=== PATIENT | female | born 1950 | race African-American/Black ===

== ENCOUNTER 2018-05-01 13:32 | Outpatient (CLI) | payer MEDICARE | END 2018-05-01 13:33 | disposition home or self-care (01) | LOC: BICULT 13:32 | PROVIDERS: ATTEND Internal Medicine | DX: N28.9 Disorder of kidney and ureter, unspecified (principal) | CPT/HCPCS: 76770 ==

== ENCOUNTER 2018-06-09 09:54 | Outpatient (CLI) | payer MEDICARE | END 2018-06-09 09:55 | disposition home or self-care (01) | LOC: BICMAMMO 09:54 | PROVIDERS: ATTEND Internal Medicine | DX: Z13.820 Encounter for screening for osteoporosis (principal); Z78.0 Asymptomatic menopausal state | CPT/HCPCS: 77080 ==

== ENCOUNTER 2018-09-22 09:40 | Outpatient (CLI) | payer MEDICARE | END 2018-09-22 09:41 | disposition home or self-care (01) | LOC: BICMAMMO 09:40 | PROVIDERS: ATTEND Internal Medicine | DX: Z12.31 Encounter for screening mammogram for malignant neoplasm of breast (principal); Z80.3 Family history of malignant neoplasm of breast | CPT/HCPCS: 77063; 77067 ==

== ENCOUNTER 2019-09-23 09:31 | Outpatient (CLI) | payer MEDICARE ==
--- NOTE | 2019-09-23 11:02 | MMO ---
Bilateral MAMMO Bilat Screen [facility]. CLINICAL HISTORY: Patient is 69 years old and is seen for screening. The patient has no family history of breast cancer. The patient has no personal history of cancer. VIEWS: The views performed were: bilateral craniocaudal with tomosynthesis; bilateral mediolateral oblique; and bilateral mediolateral oblique with tomosynthesis. FILMS COMPARED: The present examination has been compared to prior imaging studies performed at [facility] on 09/16/2015, 09/17/2016, 09/18/2017 and 09/22/2018. This study has been interpreted with the assistance of computer-aided detection. MAMMOGRAM FINDINGS: There are scattered fibroglandular densities. There are benign appearing and vascular calcifications seen in both breasts. There are no suspicious masses, suspicious calcifications, or new areas of architectural distortion. IMPRESSION: THERE IS NO MAMMOGRAPHIC EVIDENCE OF MALIGNANCY. A ROUTINE FOLLOW-UP MAMMOGRAM IN 1 YEAR IS RECOMMENDED. THE RESULTS OF THIS EXAM WERE SENT TO THE PATIENT. ACR BI-RADS Category 2 - Benign finding MAMMOGRAPHY NOTE: 1. A negative mammogram report should not delay a biopsy if a dominant of clinically suspicious mass is present. 2. Approximately 10% to 15% of breast cancers are not detected by mammography. 3. Adenosis and dense breasts may obscure an underlying neoplasm. Reported by: EBONI RENTERIA MD Electonically Signed: [id number]
== END 2019-09-23 09:32 | disposition home or self-care (01) ==
LOC: BICMAMMO 09:31
PROVIDERS: ATTEND Internal Medicine
DX: Z12.31 Encounter for screening mammogram for malignant neoplasm of breast (principal)
CPT/HCPCS: 77063; 77067

== ENCOUNTER 2020-09-28 09:43 | Outpatient (CLI) | payer MEDICARE ==
--- NOTE | 2020-09-28 10:50 | MMO ---
Bilateral MAMMO Bilat Screen [facility]. CLINICAL HISTORY: Patient is 70 years old and is seen for screening. The patient has the following family history of breast cancer: paternal grandmother, malignant (generic) and paternal aunt, malignant (generic). The patient has no personal history of cancer. VIEWS: The views performed were: bilateral craniocaudal with tomosynthesis and bilateral mediolateral oblique with tomosynthesis. FILMS COMPARED: The present examination has been compared to prior imaging studies performed at [facility] on 09/17/2016, 09/18/2017, 09/22/2018 and 09/23/2019. This study has been interpreted with the assistance of computer-aided detection. MAMMOGRAM FINDINGS: There are scattered fibroglandular densities. Benign calcifications are noted bilaterally. There are no suspicious masses, suspicious calcifications, or new areas of architectural distortion. IMPRESSION: THERE IS NO MAMMOGRAPHIC EVIDENCE OF MALIGNANCY. A ROUTINE FOLLOW-UP MAMMOGRAM IN 1 YEAR IS RECOMMENDED. THE RESULTS OF THIS EXAM WERE SENT TO THE PATIENT. ACR BI-RADS Category 2 - Benign finding MAMMOGRAPHY NOTE: 1. A negative mammogram report should not delay a biopsy if a dominant of clinically suspicious mass is present. 2. Approximately 10% to 15% of breast cancers are not detected by mammography. 3. Adenosis and dense breasts may obscure an underlying neoplasm. Reported by: ARRON PINON MD Electonically Signed: [id number]
--- NOTE | 2020-09-28 11:30 | RAD ---
XR Knee Lt 4 View STANDARD HISTORY: Left knee pain. Arthritis of left knee FINDINGS: No fracture or dislocation is identified. There are severe degenerative changes manifested by osteoph yte formation and joint space narrowing, most prominent in the medial tibiofemoral compartment.
--- NOTE | 2020-09-28 12:27 | BD ---
DEXA SCAN: Date: 09/28/2020 INDICATION: Osteoporosis screening. COMPARISON: Prior exam dated 03/29/2004. FINDINGS: Lumbar Spine: BMD (g/cm2) L1 1.296 T-Score: 2.8 Z-Score: 4.0 L2 1.332 T-Score: 2.8 Z-Score: 4.2 L3 1.270 T-Score: 1.7 Z-Score: 3.2 L4 1.281 T-Score: 2.0 Z-Score: 3.5 L1-L4 1.294 T-Score: 2.2 Z-Score: 3.7 Left Femoral Neck: 0.899 T-Score: 0.5 Z-Score: 1.1 Left Total Hip: 1.103 T-Score: 1.3 Z-Score: 1.6 The bone mineral density has declined 4.9% from baseline dated 03/29/2004. IMPRESSION: Based on WHO criteria, the patient's bone mineral density remains normal. The patient's bone mineral density has declined 4.9% from comparison DEXA scan dated 03/29/2004; however, comparison is difficul t as dissimilar scan types and analysis methods was performed in 2003 versus current exam. POS: GERBER
== END 2020-09-28 09:44 | disposition home or self-care (01) ==
LOC: BICMAMMO 09:43
PROVIDERS: ATTEND Internal Medicine
DX: Z12.31 Encounter for screening mammogram for malignant neoplasm of breast (principal); Z13.820 Encounter for screening for osteoporosis; Z78.0 Asymptomatic menopausal state; Z80.3 Family history of malignant neoplasm of breast
CPT/HCPCS: 77063; 77067; 77080

== ENCOUNTER 2020-11-04 06:48 | Outpatient (CLI) | payer MEDICARE ==
[2020-11-04 13:14] LABS: Bilirubin Neg (Negative); Blood, Urine Negative (Negative); Clarity Clear (Clear); Glucose, Urine (Dipstick) Normal (Negative); Ketone, Urine Negative (Negative); Leukocyte Negative (Negative); Nitrite Negative (Negative); Protein, Urine (Dipstick) Negative (Neg-Trace); Urobilinogen Normal mg/dL (Less than 2)
[2020-11-04 13:16] LABS: #Basophils 0.1 10x3/uL (0.0-0.2); #Eosinphils 0.1 10x3/uL (0.0-0.5); #Monocytes 0.6 10x3/uL (0.0-1.1); #Neutrophils 2.3 10x3/uL (1.5-8.4); %Basophils 0.9 % (0.0-2.0); %Eosinophils 1.6 % (0.0-6.0); %Lymphocytes 46.2 % (18.0-47.0); %Monocytes 10.5 % (0.0-10.0); %Neutrophils 40.6 % (40.0-75.0); Hemoglobin 12.8 g/dL (12.0-16.0); Mean Corpuscular HGB CONC 33.1 G/DL (32.0-36.0); Mean Corpuscular Hemoglobin 28.1 PG (27.0-33.0); Mean Corpuscular Volume 84.9 fl (80.0-100.0); Mean Platelet Volume 10.4 fl (7.4-10.4); Platelet Count 262 10x3/uL (130-400); RBC Distribution Width 13.6 % (11.5-14.5); Red Blood Cell (RBC) Count 4.56 10x6/uL (3.90-5.20); White Blood Cell (WBC) Count 5.7 10x3/uL (4.5-11.0)
[2020-11-04 13:25] LABS: Anion Gap 13 mmol/L (10-20); BUN (Urea Nitrogen) 13 mg/dL (9.8-20.1); Calc. Creatinine Clearance 0 mL/min (70-130); Calcium 9.6 mg/dL (7.8-10.44); Carbon Dioxide 27 mmol/L (23-31); Chloride 108 mmol/L (98-107); Glucose 76 mg/dL (80-115); Sodium 144 mmol/L (136-145)
[2020-11-04 13:36] LABS: PTT 25.4 sec (22.0-33.0); Prothrombin Time 10.9 sec (9.5-12.1)
[2020-11-04 13:50] LABS: Bacteria/HPF None Seen HPF (None Seen); RBC/HPF 0-3 HPF (0-3); Squamous Epithelial 0-3 HPF (0-3); WBC/HPF 0-3 HPF (0-3)
--- NOTE | 2020-11-04 16:18 | EKG ---
Test Reason : PREOP Blood Pressure : / mmHG Vent. Rate : 062 BPM Atrial Rate : 062 BPM P-R Int : 188 ms QRS Dur : 118 ms QT Int : 432 ms P-R-T Axes : 046 -13 073 degrees QTc Int : 438 ms Normal sinus rhythm Left ventricular hypertrophy with QRS widening Abnormal ECG Confirmed by DR. Flaca ZAVALA ([id number]) on 11/04/2020 4:18:17 PM Referred By: MEY Confirmed By:DR. Flaca ZAVALA
[2020-11-04 22:26] LABS: SARS-CoV-2 MS2 Positive; SARS-CoV-2 N Gene Negative; SARS-CoV-2 S Gene Negative; SARS-CoV-2 by NAA Not Detected (NotDetected); SARS-CoV-2 orf1ab Negative
== END 2020-11-04 06:49 | disposition home or self-care (01) ==
LOC: LABBT 06:48
PROVIDERS: ATTEND Orthopaedic Surgery
DX: Z01.818 Encounter for other preprocedural examination (principal); M17.12 Unilateral primary osteoarthritis, left knee; Z20.828 Contact with and (suspected) exposure to other viral communicable diseases
CPT/HCPCS: 80048; 81001; 85025; 85610; 85730; 87081; 87086; 93005; U0003; 87635; 93010

== ENCOUNTER 2020-11-09 05:33 | Day surgery (SDC) | payer MEDICARE ==
[2020-11-08 10:31] VITALS: BMI 31.9
--- NOTE | 2020-11-08 13:10 | HP ---
HISTORY OF PRESENT ILLNESS: The patient is a 70-year-old female with a greater than 10 year history of progressive problems with her left knee without specific injury. She has had progressive pain with walking, which has progressed despite rest, restriction of activities, anti-inflammatory medications, and previous injections. The pain is now interfering with day-to-day activities including walking, getting dressed, and sleeping. PAST MEDICAL HISTORY: The patient has history of hypertension and previous hysterectomy. She has a previous right knee arthroscopy. CURRENT MEDICATIONS: Include, 1. Low-dose aspirin. 2. Fish oil. 3. Claritin. 4. Pravastatin. 5. Loratadine. 6. Tylenol. 7. Losartan. 8. . ALLERGIES: SHE IS ALLERGIC TO HYZAAR, SIMVASTATIN, TELMISARTAN, AND HYDROCHLOROTHIAZIDE. FAMILY HISTORY: Otherwise unremarkable. SOCIAL HISTORY: Otherwise unremarkable. REVIEW OF SYSTEMS: Otherwise unremarkable. PHYSICAL EXAMINATION: GENERAL: Reveals a healthy female. HEENT: Unremarkable. NECK: Supple. CHEST: Clear. HEART: Regular rate and rhythm. ABDOMEN: Soft and nontender. PELVIC: Deferred. RECTAL: Deferred. BREASTS: Deferred. EXTREMITIES: Pertinent findings of the left knee, there is no effusion or erythema. There is moderately severe varus deformity. There is tenderness and crepitus over the medial joint line. There is no instability. Range of motion is 20 to 85 degrees. There is left antalgic gait. There are palpable distal pulses. No pain with range of motion of the left hip. Neurovascular exam is intact. DIAGNOSTIC STUDIES: X-rays of the left knee reveal severe degenerative arthritis with [id number] collapse medially with marked progression from x-ray done 10 years ago. IMPRESSION: 1. Degenerative arthritis, left knee. 2. History of hypertension. PLAN: Left total knee replacement. The nature of the surgery, length of recovery, and potential complications such as infection, loss of motion, incomplete relief, neurovascular injury, possible transfusion, and need for revision have been discussed in detail. Job ID: [id number]
[2020-11-09] MEDS ORDERED: Vancomycin 1.5 GRAM/300 ML BAG ONE (06:03)
[2020-11-09] MEDS ORDERED: Tranexamic Acid 1,000 MG/10 ML VIAL ONE ×2 (06:03→09:20)
[2020-11-09] MEDS ORDERED: Sodium Chloride 0.9% 100 ML ONE (06:03)
[2020-11-09] MEDS ORDERED: Fentanyl 100 MCG/2 ML VIAL ONE ×2 (06:30→08:55)
[2020-11-09] MEDS ORDERED: Midazolam HCl 2 mg/2 ml Vial ONE (06:30)
[2020-11-09] MEDS ORDERED: Lidocaine 1% w/Epinephrine 1:100K 20 ML VIAL ONE (06:41)
[2020-11-09] MEDS ORDERED: Bupivacaine 0.25% HCL 30 ML VIAL ONE (06:41)
[2020-11-09] MEDS ORDERED: Fentanyl 100 MCG/2 ML VIAL IV PRN (07:10)
[2020-11-09] MEDS ORDERED: traMADol HCl 50 MG TAB PO PRN ×2 (07:15)
[2020-11-09] MEDS ORDERED: Zolpidem Tartrate 5 MG TAB PO PRN ×2 (07:15→10:13)
[2020-11-09] MEDS ORDERED: HYDROcodone/Acetaminophen 10/325 mg Tablet PO PRN ×3 (07:15→10:13)
[2020-11-09] MEDS ORDERED: Ondansetron PF 4 MG/2 ML Vial IVP PRN ×2 (07:15→10:13)
[2020-11-09] MEDS ORDERED: Promethazine HCl 25 MG/ML VIAL IM PRN (07:15)
[2020-11-09] MEDS ORDERED: Ropivacaine HCl/PF 250 ML in Premix Bag 1 BAG NERVE BLCK SCH (07:15)
[2020-11-09] MEDS ORDERED: Bupivacaine HCl 0.5%/Epinephrine 1:200,000/PF 30 ml Vial ONE (09:17)
[2020-11-09] MEDS ORDERED: Ropivacaine 0.5% HCl/PF (150 MG/30 ML VIAL) ONE (09:17)
[2020-11-09] MEDS ORDERED: Ondansetron PF 4 MG/2 ML Vial ONE (09:17)
[2020-11-09] MEDS ORDERED: PROPOFOL 200 MG/20 ML VIAL ONE (09:17)
[2020-11-09] MEDS ORDERED: Lidocaine 1% PF 5 ML VIAL ONE (09:17)
[2020-11-09] MEDS ORDERED: Ropivacaine 0.2% HCl/PF (40 MG/20 ML VIAL) ONE (09:17)
[2020-11-09] MEDS ORDERED: Dexamethasone 20 MG/5 ML VIAL ONE (09:17)
[2020-11-09] MEDS ORDERED: Tranexamic Acid 1,000 MG in Sodium Chloride 0.9% 100 ML IVPB SCH ×2 (09:30→10:13)
[2020-11-09] MEDS ORDERED: Fentanyl 100 MCG/2 ML VIAL SLOW IVP PRN ×2 (10:13)
[2020-11-09] MEDS ORDERED: Acetaminophen 325 MG TAB PO PRN (10:13)
[2020-11-09] MEDS ORDERED: Promethazine HCl 25 MG/ML VIAL SLOW IVP PRN (10:13)
[2020-11-09] MEDS ORDERED: diphenhydrAMINE 25 MG CAP PO PRN (10:13)
--- NOTE | 2020-11-09 11:26 | OP ---
DATE OF PROCEDURE: 11/09/2020 PUBLICITY MANAGER: Melvin Renee PA-C. The psychiatric technician assistant co-surgeon was present through the entire procedure and was responsible for providing exposure, tissue retraction, and any necessary limb or tissue manipulation required to obtain necessary reduction or hardware placement. The psychiatric technician assistant co-surgeon also provided bleeding control, tissue closure, and suturing in conjunction with the primary surgeon. ANESTHESIA: General plus adductor canal and sciatic nerve blocks. PREOPERATIVE DIAGNOSIS: Degenerative arthritis, left knee. POSTOPERATIVE DIAGNOSIS: Degenerative arthritis, left knee. PROCEDURE PERFORMED: Left total knee replacement with computer-assisted navigation with cemented [place] Triathlon components (#4 femoral component, #4 primary tibial baseplate with 13-mm CS plastic insert, and all-plastic A29 patellar component). DESCRIPTION OF PROCEDURE: After satisfactory anesthesia was induced in supine position, sequential compression device was placed on the nonoperative leg throughout the procedure. The left leg was then prepped and draped in a routine manner. The leg was elevated and exsanguinated with an Esmarch bandage and the tourniquet inflated to 300 mmHg. A gently curved medial parapatellar incision was made, carried down through the subcutaneous tissues. Bleeding points were controlled with Bovie cautery. Medial parapatellar arthrotomy was performed. Patella was dislocated laterally. It was quite tight because of marked flexion contracture. Medial and lateral gutters were developed and the patellar surface was excised to help with retraction with an oscillating saw. Meniscal remnants and osteophytes were removed. Using the [employer] pinless navigation system and the appropriate guides, the distal femoral and proximal tibial articular surfaces were excised with oscillating saw to accept the trial components. It was felt that #4 femoral component and #4 tibial baseplate with 13-mm CS plastic insert gave appropriate size, fit, stability, and correction of the preoperative deformity. The patellar surface was resurfaced with an all-plastic A29 patellar component. There was good range of motion and good patellar tracking. The trial components were removed. The knee was copiously irrigated with pulsatile lavage. The bony surfaces were thoroughly cleaned and dried. The permanent components were then cemented in a single stage using one package of cement premixed with 1 g of tobramycin powder. Excess cement was removed. There was again good fit and stability of the components. The knee was again copiously irrigated. The medial retinaculum and quadriceps mechanism were closed with interrupted #2 Vicryl and a running #2 Quill. Subcutaneous tissues were closed with running 0 Quill suture. The skin closed with running subcuticular 3-0 Monoderm and SurgiSeal skin adhesive. A sterile bulky compressive dressing was applied. The tourniquet deflated after 82 minutes. The foot promptly pinked up. Sequential compression device was applied to her operative leg and she was awakened and taken to the recovery room in stable condition. There were no apparent intraoperative complications. ESTIMATED BLOOD LOSS: Less than 100 mL. Job ID: [id number]
--- NOTE | 2020-11-09 11:54 | RAD ---
LEFT KNEE 2 VIEWS: HISTORY: Postop. FINDINGS: A total knee prosthesis is in good position. Air is seen within the soft tissue and joint space. IMPRESSION: Placement of a total knee prosthesis. POS: MIRNA
[2020-11-09] MEDS ORDERED: Ketorolac Tromethamine 30 MG/ML VIAL IVP SCH (12:00)
[2020-11-09] MEDS ORDERED: Ketorolac Tromethamine 30 MG/ML VIAL ONE (12:40)
[2020-11-09] MEDS: Ketorolac Tromethamine 30 MG/ML VIAL IVP SCH ×3 (12:42→23:23)
[2020-11-09] MEDS: Sodium Chloride 0.9% 1,000 ML IV SCH ×2 (12:42→23:21)
[2020-11-09] MEDS ORDERED: Vancomycin HCl 1.5 GM in Sodium Chloride 0.9% 250 ML 300 ML IVPB SCH (18:00)
[2020-11-09] MEDS ORDERED: Vancomycin 1.5 GRAM/300 ML BAG 1.5 GM in Premix Bag 1 BAG IVPB SCH (18:00)
[2020-11-09] MEDS: CEFAZOLIN 2 GM in Premix Bag 1 BAG IVPB SCH ×2 (18:48→21:04)
[2020-11-09] MEDS: Aspirin 81 mg Enteric Coated Tablet PO SCH (21:05)
[2020-11-09] MEDS: Simvastatin 5 MG TAB PO SCH (21:05)
[2020-11-09] MEDS: Senokot S 8.6-50 MG TAB PO SCH (21:05)
[2020-11-10] MEDS: Ketorolac Tromethamine 30 MG/ML VIAL IVP SCH ×3 (05:18→18:21)
[2020-11-10] MEDS: Sodium Chloride 0.9% 1,000 ML IV SCH ×2 (05:34→16:25)
[2020-11-10 06:05] LABS: Hemoglobin 11.6 g/dL (12.0-16.0); Mean Corpuscular HGB CONC 34.5 g/dL (32.0-36.0); Mean Corpuscular Hemoglobin 30.2 pg (27.0-31.0); Mean Corpuscular Volume 87.8 fL (78.0-98.0); Mean Platelet Volume 7.6 fL (7.4-10.4); Platelet Count 195 thou/uL (130-400); RBC Distribution Width 12.6 % (11.5-14.5); Red Blood Cell (RBC) Count 3.82 mill/uL (4.20-5.40); White Blood Cell (WBC) Count 9.1 thou/uL (4.8-10.8)
[2020-11-10] MEDS: Loratadine 10 MG TAB PO SCH (07:42)
[2020-11-10] MEDS: Losartan 25 MG TAB PO SCH (07:43)
[2020-11-10] MEDS: Multivitamin W/ Minerals 1 TAB PO SCH (07:43)
[2020-11-10] MEDS: Senokot S 8.6-50 MG TAB PO SCH ×2 (07:43→20:14)
[2020-11-10] MEDS: Aspirin 81 mg Enteric Coated Tablet PO SCH ×2 (07:43→20:14)
[2020-11-10] MEDS ORDERED: FLU VACC QS2020-21(65YR UP)/PF 240 MCG/0.7 ML SYRINGE IM ONE (09:00)
[2020-11-10] MEDS: traMADol HCl 50 MG TAB PO PRN ×2 (10:31→16:22)
[2020-11-10] MEDS: Simvastatin 5 MG TAB PO SCH (20:14)
[2020-11-11] MEDS: Ketorolac Tromethamine 30 MG/ML VIAL IVP SCH ×2 (00:16→05:21)
[2020-11-11] MEDS: Sodium Chloride 0.9% 1,000 ML IV SCH (02:47)
[2020-11-11] MEDS: HYDROcodone/Acetaminophen 10/325 mg Tablet PO PRN ×3 (04:36→14:47)
[2020-11-11] MEDS: Multivitamin W/ Minerals 1 TAB PO SCH (08:33)
[2020-11-11] MEDS: Aspirin 81 mg Enteric Coated Tablet PO SCH (08:34)
[2020-11-11] MEDS: Loratadine 10 MG TAB PO SCH (08:34)
[2020-11-11] MEDS: Losartan 25 MG TAB PO SCH (08:35)
[2020-11-11] MEDS: Senokot S 8.6-50 MG TAB PO SCH (08:35)
[2020-11-11 11:56] VITALS: BP 162/80; TEMP 98.5
== END 2020-11-11 15:28 | disposition home or self-care (01) ==
LOC: SDC 05:33 → SJJU 18:12 → SDC 11-11 15:28
PROVIDERS: ATTEND Orthopaedic Surgery
PROC: 0SRD0J9 Replacement of Left Knee Joint with Synthetic Substitute, Cemented, Open Approach (ICD-10-PCS; principal; 2020-11-09)
PROC: 8E0YXBZ Computer Assisted Procedure of Lower Extremity (ICD-10-PCS; 2020-11-09)
DX: M17.12 Unilateral primary osteoarthritis, left knee (principal); I10 Essential (primary) hypertension; Z79.82 Long term (current) use of aspirin; Z79.899 Other long term (current) drug therapy; Z88.8 Allergy status to other drugs, medicaments and biological substances; Z91.018 Allergy to other foods
CPT/HCPCS: 20985; 27447; 73560; 85027; 97110 ×3; 97116 ×3; 97139 ×3; 97530 ×2; C1713; C1776; 36415; J0690; J1100; J1885; J2250; J2405; J2704; J2795; J3010; J3370; J3490; J7050; Q0163; S0020

== ENCOUNTER 2021-09-29 09:34 | Outpatient (CLI) | payer MEDICARE | END 2021-09-29 09:35 | disposition home or self-care (01) | LOC: BICMAMMO 09:34 | PROVIDERS: ATTEND Internal Medicine | DX: Z12.31 Encounter for screening mammogram for malignant neoplasm of breast (principal); Z80.3 Family history of malignant neoplasm of breast | CPT/HCPCS: 77063; 77067 ==

== ENCOUNTER 2022-10-01 11:05 | Outpatient (CLI) | payer MEDICARE | END 2022-10-01 11:06 | disposition home or self-care (01) | LOC: BICMAMMO 11:05 | PROVIDERS: ATTEND Internal Medicine | DX: Z12.31 Encounter for screening mammogram for malignant neoplasm of breast (principal); Z80.3 Family history of malignant neoplasm of breast | CPT/HCPCS: 77063; 77067 ==

== ENCOUNTER 2022-12-06 09:40 | Outpatient (CLI) | payer MEDICARE | END 2022-12-06 09:41 | disposition home or self-care (01) | LOC: BICMAMMO 09:40 | PROVIDERS: ATTEND Internal Medicine | DX: Z13.820 Encounter for screening for osteoporosis (principal); Z78.0 Asymptomatic menopausal state | CPT/HCPCS: 77080 ==

== ENCOUNTER 2023-11-08 08:41 | Outpatient (CLI) | payer MEDICARE | END 2023-11-08 08:42 | disposition home or self-care (01) | LOC: BICMAMMO 08:41 | PROVIDERS: ATTEND Internal Medicine | DX: Z12.31 Encounter for screening mammogram for malignant neoplasm of breast (principal); Z80.3 Family history of malignant neoplasm of breast | CPT/HCPCS: 77063; 77067 ==

== ENCOUNTER 2024-11-12 10:19 | Outpatient (CLI) | payer MEDICARE | END 2024-11-12 10:20 | disposition home or self-care (01) | LOC: BICMAMMO 10:19 | PROVIDERS: ATTEND Internal Medicine | DX: Z12.31 Encounter for screening mammogram for malignant neoplasm of breast (principal); Z80.3 Family history of malignant neoplasm of breast | CPT/HCPCS: 77063; 77067 ==

== ENCOUNTER 2025-11-16 09:22 | Outpatient (CLI) | payer MEDICARE | END 2025-11-16 09:23 | disposition home or self-care (01) | LOC: BICMAMMO 09:22 | PROVIDERS: ATTEND Internal Medicine | DX: Z12.31 Encounter for screening mammogram for malignant neoplasm of breast (principal); Z80.3 Family history of malignant neoplasm of breast | CPT/HCPCS: 77063; 77067 ==